=== PATIENT | female | born 1965 | race African-American/Black ===

== ENCOUNTER 2017-04-29 06:42 | Day surgery (SDC) | payer BC ==
[2017-04-27 11:06] VITALS: BMI 22.2
[~2017-04-29 06:42] MED LIST: LACTATED RINGERS 1,000 ML IV SCH
[2017-04-29] MEDS ORDERED: LACTATED RINGERS 1,000 ML IV ONE (07:08)
[2017-04-29 07:16] VITALS: RESP 18; TEMP 97.9
[2017-04-29 07:22] LABS: Glucose,Whole Blood 122 mg/dL (75-99)
[2017-04-29] MEDS ORDERED: PROPOFOL 10 MG/ML 20 ML VIAL IV ONE (07:50)
--- NOTE | 2017-04-29 07:52 | P.GSHP ---
History of Present Illness H&P Date: 04/29/17 Chief Complaint: Screening colonoscopy This is a 51-year-old female who presents today for screening colonoscopy. She denies a significant GI complaints. 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 COLONOSCOPY Past Anesthesia/Blood Transfusion Reactions: Previous Problems w/ Anesthesia Additional Past Anesthesia/Blood Transfusion Reaction / Comment(s): DIFFICULTY WAKING UP Smoking Status: Current every day smoker - Past Family History Father Family Medical History: Cancer, Prostate Disorder Additional Family Medical History / Comment(s): SICKLE CELL ANEIMIA TRAIT, PROSTATE CANCER Mother Family Medical History: Diabetes Mellitus, Hypertension Additional Family Medical History / Comment(s): DURING EYE SURGRY Medications and Allergies Home Medications Medication Instructions Recorded Confirmed Type Albuterol Nebulized [Ventolin 1 vial INHALATION DAILY PRN 07/26/14 04/29/17 History Nebulized] Albuterol Sulfate [Proair Hfa] 2 puff INHALATION QID PRN 07/26/14 04/29/17 History Budesonide [Pulmicort] 1 vial INHALATION DAILY PRN 07/26/14 04/29/17 History Carvedilol [Coreg] 25 mg PO BID 07/26/14 04/29/17 History Clopidogrel [Plavix] 75 mg PO DAILY 07/26/14 04/29/17 History Hydrochlorothiazide [Hydrodiuril] 50 mg PO DAILY 07/26/14 04/29/17 History Insulin Detemir [Levemir] 56 unit SQ QAM 07/26/14 04/29/17 History Rosuvastatin [Crestor] 10 mg PO DAILY 07/26/14 04/29/17 History Tiotropium 18 Mcg/Puff [Spiriva] 1 puff INHALATION DAILY PRN 07/26/14 04/29/17 History traMADol HCl [Ultram] 100 mg PO BID PRN 07/26/14 04/29/17 History Aspirin 81 mg PO DAILY 11/27/15 04/29/17 History Insulin Aspart [NovoLOG] 15 unit SQ TID-W/MEALS PRN 11/27/15 04/29/17 History amLODIPine BESYLATE/BENAZEPRIL 1 cap PO DAILY 11/27/15 04/29/17 History [Lotrel 10-40 mg Capsule] Allergies Allergy/AdvReac Type Severity Reaction Status Date / Time No Known Allergies Allergy Verified 04/29/17 07:18 Surgical - Exam Vital Signs Temp Pulse Resp BP Pulse Ox 97.9 F 86 18 152/80 99 04/29/17 07:14 04/29/17 07:14 04/29/17 07:14 04/29/17 07:14 04/29/17 07:14 - General well developed, no distress - Eyes PERRL - ENT normal pinna - Neck no masses - Respiratory normal expansion - Cardiovascular Rhythm: regular - Abdomen Abdomen: soft Results - Labs Abnormal Lab Results - Last 24 Hours (Table) 04/29/17 Range/Units 07:19 POC Glucose (mg/dL) 122 H (75-99) mg/dL Assessment and Plan Plan: We'll perform screening colonoscopy.
--- NOTE | 2017-04-29 08:12 | P.OP ---
Date of Procedure: 04/29/17 Preoperative Diagnosis: Screening colonoscopy Postoperative Diagnosis: Diverticulosis Procedure(s) Performed: Colonoscopy Anesthesia: MAC Surgeon: Santi Graf Pathology: none sent Condition: stable Disposition: PACU Description of Procedure: The patient's placed on the endoscopy table in the lateral position. She received IV sedation. Digital rectal exam was performed which revealed no abnormalities. The flexible colonoscope was then placed patient anus passed throughout the entire colon. The ileocecal valve was visualized. The cecum, ascending and transverse colon appeared normal. In the descending and sigmoid colon was mild diverticular changes. Scope was then brought back the rectum. The rectum was normal. Scope was withdrawn for patient.
[2017-04-29 08:30] VITALS: BP 129/70; PULSE 76
[2017-04-29 08:43] LABS: Glucose,Whole Blood 129 mg/dL (75-99)
== END 2017-04-29 09:11 | disposition home or self-care (01) ==
LOC: ORWHC2ENDO 06:42
PROVIDERS: ATTEND Surgery
DX: Z12.11 Encounter for screening for malignant neoplasm of colon (principal); K57.30 Diverticulosis of large intestine without perforation or abscess without bleeding; I25.10 Atherosclerotic heart disease of native coronary artery without angina pectoris; I11.0 Hypertensive heart disease with heart failure; I50.9 Heart failure, unspecified; F17.200 Nicotine dependence, unspecified, uncomplicated; J44.9 Chronic obstructive pulmonary disease, unspecified; Z86.73 Personal history of transient ischemic attack (TIA), and cerebral infarction without residual deficits; E11.9 Type 2 diabetes mellitus without complications; Z79.4 Long term (current) use of insulin; M79.7 Fibromyalgia; E78.5 Hyperlipidemia, unspecified; Z79.02 Long term (current) use of antithrombotics/antiplatelets; Z79.82 Long term (current) use of aspirin; Z79.899 Other long term (current) drug therapy
CPT/HCPCS: J2704; G0121; 45378

== ENCOUNTER → 2017-10-13 | Outpatient (CLI) | payer BC ==
--- NOTE | 2017-10-13 19:33 | CT ---
EXAMINATION TYPE: CT abdomen pelvis w con DATE OF EXAM: 10/13/2017 COMPARISON: 07/26/2014 HISTORY: Low abdominal/pelvic pain and diarrhea x [address] DLP: 493.5 mGycm Automated exposure control for dose reduction was used. TECHNIQUE: Helical acquisition of images was performed from the lung bases through the pelvis. CONTRAST: Performed with Oral Contrast and with IV Contrast, patient injected with 100 mL of Isovue M300. FINDINGS: Lung bases are clear. There is no pleural effusion. Heart is enlarged. Liver spleen pancreas gallbladder appear normal. Bile ducts are not dilated. There is no adrenal mass. Kidneys show satisfactory contrast opacification. There is no hydronephrosi s. Abdominal aorta is atheromatous. There is probably some luminal narrowing in the lower abdominal a kristine. There is no retroperitoneal adenopathy. There is no ascites. Bladder distends smoothly. There is no p elvic mass. There is linear density in the uterine fundus that could be an old IUD. I see no intestinal wall thickening. There are no dilated loops. Appendix appears normal. Bony struct ures are intact. IMPRESSION: NORMAL APPENDIX. NO SIGN OF ACUTE ABDOMEN AND PELVIS. MILD CARDIOMEGALY. ATHEROSCLEROTIC VASCULAR DISEASE. THERE IS POSSIBLE LOWER ABDOMINAL AORTIC STENOSIS. THERE IS PROBABL Y SOME DEGREE OF ILIAC ARTERY STENOSIS. THIS APPEARS SLIGHTLY WORSE THAN OLD CT SCAN.
== END | disposition home or self-care (01) ==
LOC: RADCTMAIN 16:25
PROVIDERS: ATTEND Family Medicine
DX: R10.30 Lower abdominal pain, unspecified (principal); R19.7 Diarrhea, unspecified
CPT/HCPCS: 82565; 84520; 74177; 36415; Q9967

== ENCOUNTER → 2017-11-30 | Outpatient (CLI) | payer BC ==
[2017-11-30 14:10] LABS: Blood Urea Nitrogen 14 mg/dL (7-17)
--- NOTE | 2017-11-30 16:09 | CT ---
EXAMINATION TYPE: CT angio thoracic/abd aorta DATE OF EXAM: 11/30/2017 COMPARISON: CT abdomen pelvis October 13, 2017 and older studies. HISTORY: Abnormal Prior scan. Follow up abdominal aortic stenosis CT DLP: 323.2 mGycm. Automated Exposure Control for Dose Reduction was Utilized. CONTRAST: CTA scan of the thorax, abdomen and pelvis is performed with IV Contrast, patient injected with 100 m L of Isovue 370. Three-D reconstructed images are created on independent workstation and reviewed FINDINGS: VASCULAR: There is mild plaque in the ascending aorta. There is mild to moderate mixed plaque in the descending thoracic aorta. There is more moderate mixed plaque in the proximal abdominal aorta extend ing into the SMA; there is narrowing of lumen approaching 50% felt present. Patent MICHAEL is identified . There is moderate to severe mixed plaque in the infrarenal abdominal aorta not causing greater than 50% stenosis. [place] diameter measures 1.3 cm axial image 70. There is severe plaque in the common i liac arteries bilaterally. Significant stenosis left common iliac artery is felt present. Significant stenosis right internal iliac artery is also identified distally at the bifurcation. There is occlus ion of the left internal iliac artery shortly after its origin. There is prominent calcified plaque i n the right internal iliac artery which may remains patent. There is moderate plaque in the proximal external iliac arteries bilaterally without significant stenosis. There is moderate plaque in the com mon femoral arteries at bifurcation without significant stenosis. LUNGS: Underlying fairly moderate emphysematous change is present. There is persistent anterior bibas ilar linear scarring and/or atelectasis. MEDIASTINUM: There are no greater than 1 cm hilar or mediastinal lymph nodes. There is stable small p ericardial effusion posteriorly and inferiorly. Heart size is upper limits of normal and stable. OTHER: There is a thin-walled 2.6 cm posterior subcutaneous oval low dense lesion likely reflecting s ebaceous cyst axial image 2 in the upper thorax. This is new from 2012 CT. LIVER/GB: No significant abnormality is appreciated. PANCREAS: No significant abnormality is seen. SPLEEN: No significant abnormality is seen. ADRENALS: No significant abnormality is seen. KIDNEYS: No significant abnormality is seen. BOWEL: Colonic diverticula are redemonstrated. GENITAL ORGANS: Horizontal density in uterus axial image 96 is redemonstrated. LYMPH NODES: No greater than 1cm abdominal or pelvic lymph nodes are appreciated. OSSEOUS STRUCTURES: No significant abnormality is seen. OTHER: Mild fat stranding anterior abdominal wall left lateral midabdomen near axial image 65 is unch anged from prior studies. IMPRESSION: Small caliber infrarenal abdominal aorta with severe calcified plaque, not greater than 5 0% stenosis. There is significant stenosis in the common iliac arteries bilaterally. Stenosis is felt 75-90% bilaterally. Presence of calcified plaque makes accurate evaluation suboptimal.
== END | disposition home or self-care (01) ==
LOC: RADCTMAIN 12:51
PROVIDERS: ATTEND Family Medicine
DX: I70.0 Atherosclerosis of aorta (principal); I70.8 Atherosclerosis of other arteries
CPT/HCPCS: 82565; 84520; 75635; 71275; Q9967

== ENCOUNTER → 2017-12-20 | Outpatient (CLI) | payer BC ==
--- NOTE | 2017-12-20 12:06 | US ---
EXAMINATION TYPE: US groin RT DATE OF EXAM: 12/20/2017 COMPARISON: CT CLINICAL HISTORY: R59.1 LYMPHADENOPATHY. Patient feels lump left groin, bilateral groin ordered. Scanned right groin, multiple nodes noted, largest measures 0.9 x 0.5 cm. IMPRESSION: Nonenlarged lymph nodes appear normal
--- NOTE | 2017-12-20 12:07 | US ---
EXAMINATION TYPE: US groin LT DATE OF EXAM: 12/20/2017 COMPARISON: CT CLINICAL HISTORY: R59.1 LYMPHADENOPATHY. Patient feels lump left groin, bilateral groin ordered. Scanned left groin directly over palpable, there is 1.3 x 0.9 cm node noted as well as multiple other smaller nodes. IMPRESSION: Nonenlarged lymph nodes appear normal
== END | disposition home or self-care (01) ==
LOC: RADUSWWP 10:48
PROVIDERS: ATTEND Surgery
DX: R59.1 Generalized enlarged lymph nodes (principal)

== ENCOUNTER → 2022-01-26 | Outpatient (CLI) | payer BC ==
--- NOTE | 2022-01-26 20:27 | CT ---
EXAMINATION TYPE: CT abdomen pelvis wo con CT DLP: 281.4 mGycm, Automated exposure control for dose reduction was used. DATE OF EXAM: 01/26/2022 5:47 PM COMPARISON: CT 11/30/2017 CLINICAL INDICATION:Female, 56 years old with history of R10.32 Left lower quadrant pain; TECHNIQUE: Standard CT of the abdomen and pelvis without IV or oral contrast. Lack of IV or oral co ntrast limits evaluation of solid and hollow organ viscera. Coronal and sagittal reformats were perfo rmed. FINDINGS: LOWER CHEST: Streaky atelectasis changes within the lung bases. Left lower lobe 4 mm pulmonary nodule , stable back to 2019. Wire. ABDOMEN LIVER: Unremarkable GALLBLADDER AND BILE DUCTS: Unremarkable. PANCREAS: Unremarkable. SPLEEN: Unremarkable. ADRENAL GLANDS: Unremarkable. KIDNEYS AND URETERS: No evidence of hydronephrosis or renal calculus. The ureters are unremarkable. PELVIS BLADDER: Incompletely distended but grossly unremarkable. REPRODUCTIVE: Unremarkable. ABDOMEN & PELVIS STOMACH AND BOWEL: Scattered diverticula are noted throughout the colon. No evidence of bowel obstruc tion. PERITONEUM: No evidence of pneumoperitoneum or free fluid. VASCULATURE: No evidence of aortic aneurysm. Bilateral arterial stents in the common iliac arteries a nd right external iliac artery. Scattered atherosclerosis changes throughout the arterial vasculature . MUSCULOSKELETAL: No acute osseous abnormalities LYMPH NODES: No gross evidence for lymphadenopathy. SOFT TISSUE/ABDOMINAL WALL: Small fat-containing umbilical hernia. IMPRESSION: 1. No evidence for acute intra-abdominal process. 2. Scattered colonic diverticulosis.
== END | disposition home or self-care (01) ==
LOC: RADCTMAIN 16:11
PROVIDERS: ATTEND Family Medicine
DX: R10.32 Left lower quadrant pain (principal); K57.30 Diverticulosis of large intestine without perforation or abscess without bleeding
CPT/HCPCS: 74176

== ENCOUNTER 2024-07-26 05:48 | Day surgery (SDC) | payer OTHER ==
[2024-07-26] MEDS ORDERED: LACTATED RINGERS 1,000 ML IV SCH (06:15)
[2024-07-26] MEDS ORDERED: LIDOCAINE 1% (10MG/ML) FOR IV START INTRADERMA PRN (06:15)
[2024-07-26] MEDS: DEXTROSE 50% SYRINGE 50 ML IVP STA (06:35)
[2024-07-26 06:43] LABS: Glucose,Whole Blood 43 mg/dL (70-110)
[2024-07-26 06:58] LABS: Glucose,Whole Blood 102 mg/dL (70-110)
[2024-07-26] MEDS ORDERED: HYDROmorphone 0.5 MG/0.5 ML SYRINGE IVP PRN (07:00)
[2024-07-26] MEDS: MIDAZOLAM 2 MG/2 ML VIAL IV ONE (07:08)
[2024-07-26 07:12] LABS: Basophils % (A) 0 %; Eosinophils # (A) 0.1 k/uL (0-0.7); Eosinophils % (A) 3 %; HCT 30.7 % (34.0-46.0); Lymphocytes # (A) 1.4 k/uL (1.0-4.8); Lymphocytes % (A) 29 %; MCH 28.9 pg (25.0-35.0); MCHC 32.6 g/dL (31.0-37.0); MCV 88.6 fL (80.0-100.0); Mean Platelet Volume 8.7; Monocytes # (A) 0.3 k/uL (0-1.0); Monocytes % (A) 5 %; Neutrophils % (A) 61 %; Platelet Count 171 k/uL (150-450); RBC 3.46 m/uL (3.80-5.40); RDW 14.3 % (11.5-15.5); WBC 4.8 k/uL (3.8-10.6)
--- NOTE | 2024-07-26 07:23 | P.ANPRN ---
Procedure Note - Anesthesia - Nerve Block Performed Left Supraclavicular Single Time Out Performed: Yes Date of Procedure: 07/26/24 Procedure Start Time: 07:08 Location of Patient: PreOp Indication: Acute Post-Operative Pain, Analgesia, Requested by Surgeon Sedation Type: Sedate with meaningful contact maintained Preparation: Sterile Prep Position: Sitting Catheter: None Needle Types: [place]ajunk Needle Gauge: 21 Ultrasound used to visualize needle placement: Yes Ultrasound used to observe medication spread: Yes Injectate: 0.5% Ropivacaine (see comment for volume) (Ropiv 20ml+[id number]) Blood Aspirated: No Pain Paresthesia on Injection Noted: No Resistance on Injection: Normal Image Stored and Saved: Yes Events: Uneventful and Well Tolerated
[2024-07-26] MEDS: ONDANSETRON 4 MG/2 ML VIAL IVP ONE (07:24)
[2024-07-26] MEDS: DEXAMETHASONE SOD PHOSPHATE 4 MG/ML 1 ML VIAL IV ONE (07:24)
[2024-07-26 07:34] LABS: African American GFR (CKD) 13 (>60 ml/min/1.73 sqM); Anion Gap 8 mmol/L; Blood Urea Nitrogen 39 mg/dL (7-17); Calcium 8.3 mg/dL (8.4-10.2); Carbon Dioxide 21 mmol/L (22-30); Chloride 111 mmol/L (98-107); Glucose 104 mg/dL (74-99); Non-African American GFR(CKD) 11 (>60 ml/min/1.73 sqM); Potassium 3.8 mmol/L (3.5-5.1); Sodium 140 mmol/L (137-145)
[2024-07-26] MEDS ORDERED: PROPOFOL 10 MG/ML 20 ML VIAL IV ONE (07:38)
[2024-07-26] MEDS ORDERED: ROPIVACAINE 5 MG/ML 30 ML VIAL ONE (07:38)
[2024-07-26] MEDS ORDERED: PROTAMINE SULFATE 10 MG/ML 5 ML VIAL ONE (07:38)
[2024-07-26] MEDS ORDERED: KETAMINE HCL IN 0.9 % NACL 50 MG/5 ML SYRINGE ONE (07:38)
[2024-07-26] MEDS ORDERED: DEXAMETHASONE SOD PHOSPHATE 4 MG/ML 1 ML VIAL ONE (07:38)
[2024-07-26] MEDS ORDERED: HEPARIN SODIUM,PORCINE 5,000 UNIT/ML 1 ML VIAL ONE (07:38)
[2024-07-26 07:39] LABS: Glucose,Whole Blood 69 mg/dL (70-110)
[2024-07-26] MEDS: SODIUM CHLORIDE 0.9% 500 ML 500 ML IV ONE (07:41)
[2024-07-26] MEDS: HEPARIN SODIUM,PORCINE (1 ML) 2,000 UNIT in SODIUM CHLORIDE 0.9% 500 ML 500 ML IRRIGATION ONE (07:41)
[2024-07-26] MEDS: ceFAZolin 2 GM in SODIUM CHLORIDE 0.9% 500 ML 500 ML IRRIGATION ONE (07:41)
[2024-07-26 07:42] VITALS: TEMP 98
--- NOTE | 2024-07-26 07:44 | P.HPIHPCON ---
History of Present Illness H&P Date: 07/26/24 Patient is a 58-year-old female with end-stage renal disease requiring dialysis. She has been evaluated with vein mapping and found to have small vessels therefore the decision was made to go forward with a loop forearm graft at this time. Risks and benefits previously been discussed. She seemed understand and is willing to proceed. Consent for Procedure: I have explained the operation/procedure to the patient, including the risks, benefits, side effects, alternative therapies (including not receiving the proposed treatment or service), the likelihood of the patient achieving his/her goals, and potential recuperation problems for the procedure/sedation/analgesia, as well as any blood products, if indicated. I also explained to the patient the risks, benefits and side effects of the alternatives, as well as the risks related to not receiving the proposed procedure, care, treatment, or services. 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 COLONOSCOPY Past Anesthesia/Blood Transfusion Reactions: Previous Problems w/ Anesthesia Additional Past Anesthesia/Blood Transfusion Reaction / Comment(s): DIFFICULTY WAKING UP Smoking Status: Current every day smoker - Past Family History Father Family Medical History: Cancer, Prostate Disorder Additional Family Medical History / Comment(s): SICKLE CELL ANEIMIA TRAIT, PROSTATE CANCER Mother Family Medical History: Diabetes Mellitus, Hypertension Additional Family Medical History / Comment(s): DURING EYE SURGRY Medications and Allergies Home Medications Medication Instructions Recorded Confirmed Type Carvedilol [Coreg] 25 mg PO BID 07/26/14 07/26/24 History Clopidogrel [Plavix] 75 mg PO DAILY 07/26/14 07/26/24 History INSULIN ASPART (NovoLOG) [NovoLOG] 5 - 15 unit SQ TID-W/MEALS PRN 11/27/15 07/26/24 History Calcium Acetate 667 mg PO HS 07/25/24 07/26/24 History Ergocalciferol [Vitamin D2 (1250 1,250 mcg PO TU 07/25/24 07/26/24 History Mcg = 48481 Iu)] Insulin Glargine,Hum.rec.anlog 55 unit SQ QAM 07/25/24 07/26/24 History [Lantus Solostar Pen] Rosuvastatin Calcium 5 mg PO HS 07/25/24 07/26/24 History calcitrioL 0.5 mcg PO TU 07/25/24 07/26/24 History hydrALAZINE HCL 40 mg PO TID 07/25/24 07/26/24 History traMADol HCL 50 mg PO DAILY PRN 07/25/24 07/26/24 History Allergies Allergy/AdvReac Type Severity Reaction Status Date / Time No Known Allergies Allergy Verified 07/26/24 06:16 Surgical - Exam Vital Signs Temp Pulse Resp BP Pulse Ox 98.0 F 74 16 164/71 100 07/26/24 06:30 07/26/24 06:30 07/26/24 06:30 07/26/24 06:30 07/26/24 06:30 General Is a pleasant cooperative female in no acute distress. No respiratory distress. Heart is regular at this time. No significant edema to the upper extremities. Results - Labs 07/26/24 06:54 07/26/24 06:54 Abnormal Lab Results - Last 24 Hours (Table) 07/26/24 07/26/24 07/26/24 Range/Units 06:33 06:54 06:54 RBC 3.46 L (3.80-5.40) m/uL Hgb 10.0 L (11.4-16.0) gm/dL Hct 30.7 L (34.0-46.0) % Chloride 111 H (98-107) mmol/L Carbon Dioxide 21 L (22-30) mmol/L BUN 39 H (7-17) mg/dL Creatinine 4.11 H (0.52-1.04) mg/dL Glucose 104 H (74-99) mg/dL POC Glucose (mg/dL) 43 L* (70-110) mg/dL Calcium 8.3 L (8.4-10.2) mg/dL 07/26/24 Range/Units 07:30 RBC (3.80-5.40) m/uL Hgb (11.4-16.0) gm/dL Hct (34.0-46.0) % Chloride (98-107) mmol/L Carbon Dioxide (22-30) mmol/L BUN (7-17) mg/dL Creatinine (0.52-1.04) mg/dL Glucose (74-99) mg/dL POC Glucose (mg/dL) 69 L (70-110) mg/dL Calcium (8.4-10.2) mg/dL Diabetes panel 07/26/24 Range/Units 06:54 Sodium 140 (137-145) mmol/L Potassium 3.8 (3.5-5.1) mmol/L Chloride 111 H (98-107) mmol/L Carbon Dioxide 21 L (22-30) mmol/L BUN 39 H (7-17) mg/dL Creatinine 4.11 H (0.52-1.04) mg/dL Glucose 104 H (74-99) mg/dL Calcium 8.3 L (8.4-10.2) mg/dL Calcium panel 07/26/24 Range/Units 06:54 Calcium 8.3 L (8.4-10.2) mg/dL Pituitary panel 07/26/24 Range/Units 06:54 Sodium 140 (137-145) mmol/L Potassium 3.8 (3.5-5.1) mmol/L Chloride 111 H (98-107) mmol/L Carbon Dioxide 21 L (22-30) mmol/L BUN 39 H (7-17) mg/dL Creatinine 4.11 H (0.52-1.04) mg/dL Glucose 104 H (74-99) mg/dL Calcium 8.3 L (8.4-10.2) mg/dL Adrenal panel 07/26/24 Range/Units 06:54 Sodium 140 (137-145) mmol/L Potassium 3.8 (3.5-5.1) mmol/L Chloride 111 H (98-107) mmol/L Carbon Dioxide 21 L (22-30) mmol/L BUN 39 H (7-17) mg/dL Creatinine 4.11 H (0.52-1.04) mg/dL Glucose 104 H (74-99) mg/dL Calcium 8.3 L (8.4-10.2) mg/dL Assessment and Plan Assessment: End-stage renal disease Plan: Plan for left upper extremity loop forearm graft.
[2024-07-26] MEDS: BUPIVACAINE (PF) 0.5% 30 ML VIAL SQ ONE ×2 (08:02)
[2024-07-26] MEDS: LIDOCAINE 1% INJ 10MG/ML (20 ML MDV) SQ ONE ×2 (08:02)
[2024-07-26 08:08] LABS: Glucose,Whole Blood 128 mg/dL (70-110)
[2024-07-26 08:42] LABS: Glucose,Whole Blood 105 mg/dL (70-110)
[2024-07-26] MEDS: THROMBIN (BOVINE) 5,000 UNIT VIAL TOPICAL ONE (08:46)
--- NOTE | 2024-07-26 09:28 | P.OP ---
Date of Procedure: 07/26/24 Description of Procedure: Preoperative diagnosis: Chronic kidney disease, anticipated need for dialysis Postoperative diagnosis: Same Procedure: Left upper extremity loop forearm graft Surgeon: Homa Holley D.O. Anesthesia: Regional block with sedation EBL: 25 mL IV fluids: See operative records Urine output: Not measured Drains: None Complications: None immediately apparent Condition: Stable to PACU Operative indication and findings: Patient is a 58-year-old female with end- stage renal disease who requires dialysis. She has small veins vein mapping therefore loop forearm graft was recommended. Risks and benefits were discussed. She seemingly understood and was willing to proceed. Procedure in detail: The patient was taken to the operative suite and placed in supine position. The upper extremity is prepped and draped in usual sterile fashion. A preprocedure timeout was performed, all parties were in agreement. A transverse incision was made just distal to the antecubital fossa and carried down to the level of the brachial artery. It was dissected free circumferentially and proximal and distal Vesseloops were placed. Attention was then turned towards the venous outflow. The venous outflow identified was the cephalic vein at the cinder man where the basilic branch arose from. These areas were encircled with Vesseloops. The 4 x 7 propatent graft was then tunneled through a counter incision in the forearm and a subcutaneous tissues. The patient was then heparinized. Flow was occluded through the artery. An arteriotomy was performed and anastomosis to the graft was performed with 6-0 Prolene. The graft was then flushed and the anastomosis was tied. Flow was resumed through the artery. Attention was then turned towards the venous anastomosis. Flow was occluded through the vein and a venotomy was performed. Anastomosis created with 6-0 Prolene. Prior to completion of the anastomosis the graft was flushed as well as the veins themselves. Fow was reinstituted. There remained a palpable pulse proximal and distal to the arterial anastomosis as well as a palpable pulse in the wrist. Thrombin Gelfoam was used for hemostasis. The incision sites were copiously irrigated the subcutaneous tissues were approximately with 3-0 Vicryl in interrupted fashion and the skin was reapproximated with running 4-0 Monocryl. Skin glue was placed. The patient was allowed awaken from anesthesia and transferred to PACU in stable condition having tolerated the procedure well. Plan - Discharge Summary Discharge Rx Participant: No New Discharge Prescriptions: No Action Clopidogrel [Plavix] 75 mg PO DAILY Carvedilol [Coreg] 25 mg PO BID INSULIN ASPART (NovoLOG) [NovoLOG] 5 - 15 unit SQ TID-W/MEALS PRN PRN Reason: based on meals Calcium Acetate 667 mg PO HS Rosuvastatin Calcium 5 mg PO HS traMADol HCL 50 mg PO DAILY PRN PRN Reason: Pain calcitrioL 0.5 mcg PO TU Ergocalciferol [Vitamin D2 (1250 Mcg = 58010 Iu)] 1,250 mcg PO TU hydrALAZINE HCL 40 mg PO TID Insulin Glargine,Hum.rec.anlog [Lantus Solostar Pen] 55 unit SQ QAM Discharge Medication List Carvedilol [Coreg] 25 mg PO BID 07/26/14 [History] Clopidogrel [Plavix] 75 mg PO DAILY 07/26/14 [History] INSULIN ASPART (NovoLOG) [NovoLOG] 5 - 15 unit SQ TID-W/MEALS PRN 11/27/15 [History] Calcium Acetate 667 mg PO HS 07/25/24 [History] Ergocalciferol [Vitamin D2 (1250 Mcg = 03556 Iu)] 1,250 mcg PO TU 07/25/24 [History] Insulin Glargine,Hum.rec.anlog [Lantus Solostar Pen] 55 unit SQ QAM 07/25/24 [History] Rosuvastatin Calcium 5 mg PO HS 07/25/24 [History] calcitrioL 0.5 mcg PO TU 07/25/24 [History] hydrALAZINE HCL 40 mg PO TID 07/25/24 [History] traMADol HCL 50 mg PO DAILY PRN 07/25/24 [History] Follow up Appointment(s)/Referral(s): Homa Holley DO [STAFF PHYSICIAN] - 2 Weeks Activity/Diet/Wound Care/Special Instructions: Resume regular diet, resume home medications, plavix tomorrow. leave wrap in p lace for 48h. then may bathe as previous. use sling for first 24-48h Discharge Disposition: HOME SELF-CARE
[2024-07-26 09:49] LABS: Glucose,Whole Blood 90 mg/dL (70-110)
[2024-07-26 09:49] LABS: Glucose,Whole Blood 90 mg/dL (70-110)
[2024-07-26 10:38] VITALS: PULSE 74; RESP 18
[2024-07-26 10:40] VITALS: BP 145/55
== END 2024-07-26 11:03 | disposition home or self-care (01) ==
LOC: OR 05:48
PROVIDERS: ATTEND Surgery
DX: E11.22 Type 2 diabetes mellitus with diabetic chronic kidney disease (principal); I13.2 Hypertensive heart and chronic kidney disease with heart failure and with stage 5 chronic kidney disease, or end stage renal disease; I50.9 Heart failure, unspecified; N18.6 End stage renal disease; Z99.2 Dependence on renal dialysis; G89.18 Other acute postprocedural pain; I25.10 Atherosclerotic heart disease of native coronary artery without angina pectoris; E78.5 Hyperlipidemia, unspecified; E11.51 Type 2 diabetes mellitus with diabetic peripheral angiopathy without gangrene; M79.7 Fibromyalgia; J44.9 Chronic obstructive pulmonary disease, unspecified; D64.9 Anemia, unspecified; E55.9 Vitamin D deficiency, unspecified; Z91.89 Other specified personal risk factors, not elsewhere classified; F17.200 Nicotine dependence, unspecified, uncomplicated; Z79.02 Long term (current) use of antithrombotics/antiplatelets; Z79.4 Long term (current) use of insulin; Z79.899 Other long term (current) drug therapy; Z86.73 Personal history of transient ischemic attack (TIA), and cerebral infarction without residual deficits; Z83.3 Family history of diabetes mellitus; Z82.49 Family history of ischemic heart disease and other diseases of the circulatory system
CPT/HCPCS: 36830; 64415; 80048; 85025; L8670; J2250; J2720; J1644; J1100; J0690; J2405; J2003; J2795; J2704; J0665